=== PATIENT | female | born 1965 | race African-American/Black ===

== ENCOUNTER 2022-10-19 13:23 | Inpatient (IN) | payer BC ==
[~2022-10-19] VITALS: Ht 180.3 cm; Wt 93.0 kg
[2022-10-19] MEDS ORDERED: SODIUM CHLORIDE 0.9% 1,000 ML IV ONE (14:00)
[2022-10-19] MEDS ORDERED: ADENOSINE 3 MG/ML 2ML VIAL IV ONE ×2 (14:00)
[2022-10-19] MEDS ORDERED: DILTIAZEM HCL 5MG/ML 5ML VIAL IV NR (14:30)
[2022-10-19 14:58] LABS: BASOPHILS % 1.2 % (0.0-2.0); EOSINOPHILS % 0.8 % (0.0-5.0); HEMATOCRIT. 41.3 % (36.0-48.0); HEMOGLOBIN. 13.7 g/dL (12.0-16.0); LYMPHOCYTES % 37.9 % (20.0-50.0); MEAN CORPUSCULAR HEMOGLOBIN 29.2 pg (28.0-32.0); MEAN CORPUSCULAR VOLUME 87.9 fL (81.0-99.0); MEAN PLATELET VOLUME 8.8 fl (7.4-10.4); MONOCYTES % 7.2 % (2.0-8.0); NEUTROPHILS % 52.9 % (40.0-76.0); PLATELET 336 x1000/uL (130-400); RED BLOOD CELL COUNT 4.69 mill/uL (4.2-5.4); RED CELL DISTRIBUTION WIDTH 12.7 % (11.6-14.6)
[2022-10-19 15:48] LABS: CHLORIDE 110 mEq/L (98-107)
[2022-10-19] MEDS ORDERED: ASPIRIN 325MG EC TABLET PO ONE (16:15)
[2022-10-19] MEDS ORDERED: NALOXONE HCL 0.4MG/ML VIAL IV PRN (20:15)
[2022-10-19] MEDS ORDERED: MORPHINE SULFATE 2 MG/ML CPJ (NOT FOR IM USE) IV PRN (20:15)
[2022-10-19] MEDS ORDERED: CLONIDINE 0.1MG TABLET PO PRN (21:30)
[2022-10-19] MEDS ORDERED: LORAZEPAM 0.5MG TABLET PO PRN (21:30)
[2022-10-19] MEDS ORDERED: ACETAMINOPHEN 325MG TABLET PO PRN ×2 (21:30)
[2022-10-19] MEDS ORDERED: DOCUSATE SODIUM 100MG CAPSULE PO PRN (21:30)
[2022-10-19] MEDS ORDERED: ONDANSETRON HCL 4MG/2ML INJ IV PRN (21:30)
[2022-10-19] MEDS ORDERED: HYDROCODONE/ACETAMINOPHEN 5/325MG TABLET PO PRN (21:30)
[2022-10-19] MEDS ORDERED: IPRATROPIUM/ALBUTEROL 0.5-3(2.5)MG/3ML NEB HHN PRN (21:30)
[2022-10-19 23:16] VITALS: BP 120/80
[2022-10-20 06:09] LABS: BASOPHILS % 1.8 % (0.0-2.0); EOSINOPHILS % 2.3 % (0.0-5.0); LYMPHOCYTES % 43.2 % (20.0-50.0); MEAN CORPUSCULAR HEMOGLOBIN 29.5 pg (28.0-32.0); MEAN CORPUSCULAR VOLUME 88.8 fL (81.0-99.0); MEAN PLATELET VOLUME 8.2 fl (7.4-10.4); NEUTROPHILS % 42.7 % (40.0-76.0); PLATELET 262 x1000/uL (130-400); RED BLOOD CELL COUNT 4.39 mill/uL (4.2-5.4); RED CELL DISTRIBUTION WIDTH 12.5 % (11.6-14.6)
[2022-10-20 08:00] VITALS: BP_SYST 64
[2022-10-20 08:06] LABS: CHLORIDE 110 mEq/L (98-107)
[2022-10-20 12:00] VITALS: BP 106/69
[2022-10-20 12:08] LABS: *AMPHETAMINES SCREEN URINE NEGATIVE (NEGATIVE); *BARBITURATES SCREEN URINE NEGATIVE (NEGATIVE); *BENZODIAZEPINES SCREEN URINE NEGATIVE (NEGATIVE); *COCAINE SCREEN URINE NEGATIVE (NEGATIVE); CANNABINOID URINE SCREEN NEGATIVE (NEGATIVE); METHADONE URINE SCREEN NEGATIVE (NEGATIVE); OPIATES URINE SCREEN NEGATIVE (NEGATIVE); PHENCYCLIDINE URINE SCREEN NEGATIVE (NEGATIVE)
[2022-10-20 16:00] VITALS: BP 111/63
[2022-10-20] MEDS: DILTIAZEM HCL 30MG TABLET PO SCH (17:59)
[2022-10-20] MEDS ORDERED: DIGOXIN 500MCG/2ML AMP IV SCH (18:00)
[2022-10-20 19:59] LABS: T4 FREE 1.06 ng/dL (0.76-1.46)
[2022-10-20 20:00] VITALS: BP 118/78
[2022-10-20] MEDS ORDERED: METOPROLOL TARTRATE 25MG TABLET PO SCH (21:00)
[2022-10-21] VITALS: BP 118/58
[2022-10-21] MEDS: DILTIAZEM HCL 30MG TABLET PO SCH ×3 (00:22→12:09)
[2022-10-21 04:00] VITALS: BP 121/73
[2022-10-21 06:52] LABS: BASOPHILS % 1.5 % (0.0-2.0); EOSINOPHILS % 2.2 % (0.0-5.0); HEMATOCRIT. 42.2 % (36.0-48.0); HEMOGLOBIN. 13.7 g/dL (12.0-16.0); LYMPHOCYTES % 41.2 % (20.0-50.0); MEAN CORPUSCULAR VOLUME 89.1 fL (81.0-99.0); MEAN PLATELET VOLUME 8.2 fl (7.4-10.4); MONOCYTES % 10.1 % (2.0-8.0); PLATELET 257 x1000/uL (130-400); RED BLOOD CELL COUNT 4.74 mill/uL (4.2-5.4); RED CELL DISTRIBUTION WIDTH 12.4 % (11.6-14.6)
[2022-10-21 08:00] VITALS: BP 121/79
[2022-10-21 09:22] LABS: CHLORIDE 110 mEq/L (98-107)
[2022-10-21 09:50] LABS: DIGOXIN 0.3 ng/mL (0.9-2.0)
[2022-10-21 10:53] VITALS: BP_SYST 121; BP_SYST 131; BP_DIAS 71; BP_DIAS 79
[2022-10-21 12:00] VITALS: BP 131/71
[2022-10-21] MEDS ORDERED: DIGO-34 PO (12:03)
[2022-10-21] MEDS ORDERED: DILT30TA37 PO (12:03)
[2022-10-21] MEDS ORDERED: DIGOXIN 125MCG TABLET PO SCH (18:00)
== END 2022-10-21 12:40 | disposition home or self-care (01) | DRG 310 ==
LOC: ER 13:58 → 7EST 15:53 → EDBEDREQ 16:44 → 7EST 10-20 00:46
PROVIDERS: ADMIT Family Medicine Adult Medicine; ATTEND Family Medicine Adult Medicine
DX: I47.1 Supraventricular tachycardia (principal); R74.01 Elevation of levels of liver transaminase levels; Z90.710 Acquired absence of both cervix and uterus
CPT/HCPCS: 36415; 71045; 80048; 80053; 80061; 80162; 80305; 83735; 83880; 84439; 84443; 84480; 84484; 85025; 93005; 93306; 99291; J0153; J1160; J3490; J7030